=== PATIENT | male | born 1955 | race Caucasian/White ===

== ENCOUNTER 2024-02-04 07:33 | Day surgery (SDC) | payer BC, OTHER ==
[2024-02-04] MEDS: Lactated Ringers 1,000 ML IV SCH (07:51)
[2024-02-04] MEDS ORDERED: Propofol 200 MG/20 ML SDV ONE (08:41)
[2024-02-04] MEDS ORDERED: fentaNYL 50 MCG/ML SDV ONE (08:41)
[2024-02-04] MEDS ORDERED: Midazolam 1 MG/ML 2 ML SDV ONE (08:41)
== END 2024-02-04 10:15 | disposition home or self-care (01) ==
LOC: JP.SDS 07:33
PROVIDERS: ATTEND Family Medicine
DX: Z12.11 Encounter for screening for malignant neoplasm of colon (principal); E78.5 Hyperlipidemia, unspecified; Z86.010 Personal history of colon polyps; K21.9 Gastro-esophageal reflux disease without esophagitis
CPT/HCPCS: 45378; J2250; J2704; J3010; J7120

== ENCOUNTER 2024-04-05 17:27 | Emergency (ER) | payer MEDICARE, OTHER ==
[2024-04-05] MEDS: fentaNYL 100 MCG/2 ML SDV IM ONE (18:58)
[2024-04-05] MEDS: Lidocaine 1% 5 ML VIAL INJECT ONE (18:58)
[2024-04-05] MEDS: Bacitracin Oint 1 GM U/D Packet TOP ONE (18:59)
[2024-04-05] MEDS: Diphtheria,Pertussis(Acell),Tetanus Vaccine 0.5 ML Syringe IM ONE (19:00)
[2024-04-05] MEDS ORDERED: Silver Nitrate Applicator Each ONE (19:50)
== END 2024-04-05 20:46 | disposition home or self-care (01) ==
LOC: JP.ED 17:27
DX: S62.631B Displaced fracture of distal phalanx of left index finger, initial encounter for open fracture (principal); S62.633B Displaced fracture of distal phalanx of left middle finger, initial encounter for open fracture; Z23 Encounter for immunization; I10 Essential (primary) hypertension; K21.9 Gastro-esophageal reflux disease without esophagitis; Z79.899 Other long term (current) drug therapy; Z90.49 Acquired absence of other specified parts of digestive tract; Z87.891 Personal history of nicotine dependence; W31.2XXA Contact with powered woodworking and forming machines, initial encounter
CPT/HCPCS: 11730; 12001; 73140; 90471; 90715; 96372; 99283; J3010; 99284